=== PATIENT | male | born 2000 | race Caucasian/White ===

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

== ENCOUNTER 2022-09-25 11:07 | Emergency (ER) | payer OTHER, SELFPAY ==
--- NOTE | ~2022-09-25 | XR_ITS ---
EXAMINATION: XR lumbar spine min 4V DATE: 09/25/2022 11:45 INDICATION: Low back pain TECHNIQUE: Anteroposterior, lateral, and bilateral oblique views of the lumbar spine, and cone-down l ateral view of the lumbosacral junction were obtained. COMPARISON: None. FINDINGS: Bone alignment is normal. There is no fracture. The vertebral body heights and intervertebr al disc spaces are maintained. Spina bifida occulta is noted at S1. A moderate volume of colonic stoo l is present. IMPRESSION: 1. No acute osseous abnormality. Reviewed, dictated and finalized at location A.
[2022-09-25 11:15] VITALS: BP 134/80; PULSE 82; RESP 20; TEMP 36.8; O2SAT 100
--- NOTE | 2022-09-25 11:41 | ED.BACK ---
HPI - Back Pain/Injury General Chief Complaint: Back Pain/Injury Stated Complaint: lower back pain Time Seen by Provider: 09/25/22 11:40 Source: patient, RN notes reviewed and old records reviewed Mode of arrival: ambulatory Limitations: no limitations History of Present Illness HPI Narrative: 22 year old male who presents to [facility] care with complaints of right lower back pain which radiates down the buttocks into right leg posteriorly below knee for the past 3 days. Patient reports no known injury to his back, states pain is aggravated by bending and ambulation.Patient reports that his father adjusted his hips last time he is chiropractor. He states also that he has taken Ibuprofen and did take one of his mother's Xanax. No redness, bruising or any swelling noted to back denies any difficulty passing urine or stool. MD elicited complaint: back pain Onset (ago): day(s) (3) Pain scale (0-10): 3 Quality: sharp and aching Location: lumbar spine (sciatica right) Treatments prior to arrival: NSAIDS and other (took one of his mom's xanax) Work related injury: No Related Data Home Medications Medication Instructions Recorded Confirmed clonidine HCl 0.1 mg tablet 0.2 mg PO QHS 09/25/22 09/25/22 fluvoxamine 100 mg tablet 100 mg PO DAILY 09/25/22 09/25/22 lithium carbonate 300 mg tablet 300 mg PO BID 09/25/22 09/25/22 methylphenidate HCl 20 mg 20 mg PO TID PRN ADHD 09/25/22 09/25/22 tablet,extended release risperidone 1 mg tablet 1 mg PO DAILY 09/25/22 09/25/22 Allergies Allergy/AdvReac Type Severity Reaction Status Date / Time latex Allergy Rash Verified 09/25/22 11:36 Review of Systems Review of Systems: CONSTITUTIONAL: Denies fever, chills, or sweats. CARDIOVASCULAR: Denies chest pain, palpitations, or edema. RESPIRATORY: Denies cough or dyspnea. GASTROINTESTINAL: Denies abdominal pain, nausea, vomiting, or diarrhea. GENITOURINARY: Denies dysuria or hematuria. SKIN: Denies rash or itching. MUSCULOSKELETAL: Reports back pain right lower down buttock and radiating down right leg posteriorly to below knee. or myalgia. NEUROLOGIC: Denies headache, numbness, or weakness. All systems reviewed & are unremarkable except as noted in HPI and below Eyes: Comments: an PMFSH Past Medical History Medical History (Updated 09/26/22 @ 07:26 by Juliette Hurley NP) ADHD (attention deficit hyperactivity disorder) Anxiety and depression Difficulty controlling anger Fracture of right hand Insomnia OCD (obsessive compulsive disorder) Social History Social History (Updated 09/26/22 @ 07:16 by Juliette Hurley NP) Smoking packs per day: 0.3 Smoking cigarettes per day: 6.0 Smoking status: Current every day smoker Tobacco type: cigarettes and e-cigarettes/vaping Additional smoking assessment comments: use to vape now smokes cigarettes Alcohol intake: current Alcohol use details: social occasional Substance use: current Substance use type: marijuana Living arrangements: with family Gender identity (if verbalized by the patient): Male Comments At time of signature, agree with nursing past medical, surgical, social and family history. There is no relevant family history pertinent to the presenting complaint Exam Narrative: GENERAL: Well-appearing, well-nourished, and in no acute distress. HEAD: Normocephalic, atraumatic. EYES: PERRLA and EOMI. NECK: Supple. No lymphadenopathy. CHEST: Clear to auscultation. No respiratory distress. SAO2 100% on room air HEART: Regular rate and rhythm. Distal pulses palpable and equal, cap refill <3 seconds ABDOMEN: Soft, nontender, nondistended, normal active bowel sounds, no palpable or pulsatile masses. No CVA tenderness MUSCULOSKELETAL: Normal range of motion and strength in all extremities; 5/5 strength with hip flexion and extension, dorsiflexion and extension, knee flexion and extension, plantar flexion and extension. Normal sensation in ramiro
== END 2022-09-25 12:15 | disposition home or self-care (01) ==
PROVIDERS: Emergency Provider Registered Nurse
DX: M54.16 Radiculopathy, lumbar region (principal); M54.31 Sciatica, right side; F90.9 Attention-deficit hyperactivity disorder, unspecified type; F32.A Depression, unspecified; F17.210 Nicotine dependence, cigarettes, uncomplicated
CPT/HCPCS: 72110; 99213; G0463

== ENCOUNTER 2022-12-24 09:51 | Outpatient (CLI) | payer OTHER, SELFPAY ==
[2022-12-24 19:31] LABS: Hematocrit 44.3 % (42.0-52.0); Hemoglobin 13.7 g/dL (14.0-18.0); Mean Corpuscular HGB Conc 30.9 g/dl (32-36); Mean Corpuscular Hemoglobin 31.6 pg (26-34); Mean Corpuscular Volume 102.1 fl (80-100); Mean Platelet Volume 11.7 fl (7.4-10.4); Platelet Count Result 180 k/mm3 (150-375); Red Blood Count 4.34 M/mm3 (4.6-6.20); Red Cell Distribution Width 12.7 % (11.5-14.5); White Blood Count 5.1 K/mm3 (4.5-10.0)
[2022-12-24 19:39] LABS: Alanine Aminotransferase 20 U/L (6-50); Albumin Level 4.3 g/dL (3.5-5.1); Alkaline Phosphatase 86 U/L (38-126); Anion Gap 5 mmol/L (8-16); Aspartate Amino Transferase 50 U/L (17-59); Bilirubin,Total 0.3 mg/dL (0.2-1.3); Blood Urea Nitrogen 14 mg/dL (9-20); Calcium 9.1 mg/dL (8.4-10.2); Carbon Dioxide 33 mmol/L (22-30); Chloride 100 mmol/L (98-107); Cholesterol 121 mg/dL (0-200); Estimated Glomerular Filt Rate > 60; Glucose 84 mg/dL (65-110); HDL Direct 47 mg/dL; Potassium 4.4 mmol/L (3.4-5.0); Sodium 138 mmol/L (137-145); Triglycerides 157 mg/dL (<150)
[2022-12-24 19:49] LABS: LDL Cholesterol Direct 55 mg/dL
== END 2022-12-24 09:52 | disposition home or self-care (01) ==
LOC: ANHBWCLAB 09:53
PROVIDERS: PCP Family Medicine; Visit Provider Family Medicine
DX: G47.00 Insomnia, unspecified (principal); F90.9 Attention-deficit hyperactivity disorder, unspecified type; F42.9 Obsessive-compulsive disorder, unspecified; F41.9 Anxiety disorder, unspecified; F32.A Depression, unspecified; R45.4 Irritability and anger
CPT/HCPCS: 36415; 80053; 80061; 85027

== ENCOUNTER 2023-01-10 09:08 | Outpatient (CLI) | payer OTHER, SELFPAY ==
[2023-01-10 19:01] LABS: Iron 54 ug/dL (49-181)
[2023-01-10 19:17] LABS: Percent Iron Saturation 16 % (20-50)
== END 2023-01-10 09:09 | disposition home or self-care (01) ==
LOC: ANHBWCLAB 09:10
PROVIDERS: PCP Family Medicine; Visit Provider Family Medicine
DX: D64.9 Anemia, unspecified (principal)
CPT/HCPCS: 36415; 82607; 82728; 83540; 83550

== ENCOUNTER 2023-10-16 08:03 | Emergency (ER) | payer OTHER, SELFPAY ==
[2023-10-16 08:14] VITALS: BP 118/76; PULSE 77; RESP 18; TEMP 36.6; O2SAT 99
--- NOTE | 2023-10-18 10:14 | ED.URI ---
HPI - URI/Sore Throat General Chief Complaint: Upper Respiratory Infection Stated Complaint: Fever Time Seen by Provider: 10/16/23 08:30 Source: patient Mode of arrival: ambulatory Limitations: no limitations History of Present Illness HPI Narrative: 23-year-old male presents with complaint of fever, nasal congestion, cough, fatigue, headache for 2 days. Patient states recent camping trip, multiple people that were not with him positive for COVID. No chest pain or shortness of breath. Needs work note. All systems reviewed and negative except as noted above. Related Data Home Medications Medication Instructions Recorded Confirmed No Home Medications 10/16/23 10/16/23 Allergies Allergy/AdvReac Type Severity Reaction Status Date / Time latex Allergy Rash Verified 10/16/23 08:24 Review of Systems Review of Systems: CONSTITUTIONAL: Reports fever, chills, or sweats. EYES: Denies visual changes, redness, or discharge. ENT: reports rhinorrhea, congestion, sore throat. Denies otalgia. CARDIOVASCULAR: Denies chest pain, palpitations, or edema. RESPIRATORY: reports cough. Denies dyspnea. GASTROINTESTINAL: Denies abdominal pain, nausea, vomiting, or diarrhea. GENITOURINARY: Denies dysuria or hematuria. SKIN: Denies rash or itching. MUSCULOSKELETAL: Denies back pain, joint pain, or myalgia. NEUROLOGIC: Denies headache, numbness, or weakness. PSYCHIATRIC: Denies anxiety or depression. All other systems reviewed are negative, except as documented in HPI. [facility] Past Medical History Medical History (Updated 10/16/23 @ 08:39 by Lidia Leary NP) ADHD (attention deficit hyperactivity disorder) Anxiety and depression Difficulty controlling anger Fracture of right hand Insomnia OCD (obsessive compulsive disorder) Social History Social History (Updated 12/24/22 @ 09:12 by Esme Philippe MA) Smoking packs per day: 0.3 Smoking cigarettes per day: 6.0 Smoking status: Current every day smoker Tobacco type: cigarettes and e-cigarettes/vaping Additional smoking assessment comments: use to vape now smokes cigarettes Alcohol intake: current Alcohol use details: social occasional Substance use: current Substance use type: marijuana Lack of Transportation: YES Lack of Food: Never True Current Housing: I Have Housing Concerned About Future Housing: No Difficulty Paying Gas/Electric Bills: No Difficulty Paying for Meds: No Currently Unemployed: No Education: High School Diploma/GED Difficulty w/ Childcare or Family Care: No Living arrangements: with family Gender identity (if verbalized by the patient): Male Comments At time of signature, agree with nursing past medical, surgical, social and family history. There is no relevant family history pertinent to the presenting complaint. Exam Narrative: GENERAL: This is a well-nourished, well-developed patient, ill-appearing but in no acute distress. HEAD: normocephalic, atraumatic. EYES: PERRL. Sclera clear/white. Vision is grossly intact. EARS: External ears normal, auditory canals clear and without drainage, TMs normal without perforation. Hearing grossly intact. NOSE: External nose normal with Clear nasal drainage, mild congestion. THROAT: Mucous membranes moist, Erythema postnasal drainage NECK: Neck supple, non-tender without lymphadenopathy, masses or thyromegaly. CARDIOVASCULAR: Regular rate and rhythm without murmurs, gallops, or rubs. RESPIRATORY: Clear to auscultation. Breath sounds equal bilaterally. No wheezes, rales, or rhonchi. SKIN: warm, Dry, intact with no suspicious lesions or rash, good texture and turgor. NEURO: awake, alert, and oriented to person, place and time. There were no obvious focal neurologic abnormalities. EXTREMITIES: No joint tenderness, effusion, or edema noted. Course Course Level of Care: Express Care Visit Vital Signs Vital signs: Vital Signs Temperature 36.
== END 2023-10-16 08:40 | disposition home or self-care (01) ==
PROVIDERS: Emergency Provider Nurse Practitioner Family
DX: U07.1 COVID-19 (principal); F17.210 Nicotine dependence, cigarettes, uncomplicated; F12.90 Cannabis use, unspecified, uncomplicated
CPT/HCPCS: 87426; 99213; G0463

== ENCOUNTER 2024-01-23 13:03 | Outpatient (CLI) | payer OTHER, SELFPAY ==
[2024-01-23 18:39] LABS: Basophils Percent Auto 0.2 % (0.2-1.2); Eosinophils Percent Auto 0.7 % (0-4.4); Hemoglobin 15.9 g/dL (14.0-18.0); Immature Granulocyte Absolute 0.02 K/mm3 (0.00-0.031); Immature Granulocyte Percent A 0.4 % (0-0.5); Lymphocytes Absolute Auto 1.75 K/mm3 (0.9-3.2); Lymphocytes Percent Auto 32.3 % (18.3-44.2); Mean Corpuscular HGB Conc 33.8 g/dl (32-36); Mean Corpuscular Hemoglobin 31.9 pg (26-34); Mean Corpuscular Volume 94.2 fl (80-100); Mean Platelet Volume 12.1 fl (7.4-10.4); Monocytes Absolute Auto 0.3 K/mm3 (0.1-0.6); Monocytes Percent Auto 4.8 % (2.6-8.5); Neutrophils Absolute Auto 3.3 K/mm3 (1.3-6.7); Neutrophils Percent Auto 61.6 % (45.5-73.1); Platelet Count Result 185 k/mm3 (150-375); Red Blood Count 4.99 M/mm3 (4.6-6.20); Red Cell Distribution Width 12.6 % (11.5-14.5); White Blood Count 5.4 K/mm3 (4.5-10.0)
[2024-01-23 19:05] LABS: Alanine Aminotransferase 24 U/L (6-50); Albumin Level 4.5 g/dL (3.5-5.1); Alkaline Phosphatase 94 U/L (38-126); Anion Gap 8 mmol/L (4-12); Aspartate Amino Transferase 80 U/L (17-59); Bilirubin,Total 0.5 mg/dL (0.2-1.3); Blood Urea Nitrogen 17 mg/dL (9-20); Calcium 9.5 mg/dL (8.4-10.2); Carbon Dioxide 31 mmol/L (22-30); Chloride 103 mmol/L (98-107); Estimated Glomerular Filt Rate > 60; Glucose 80 mg/dL (65-110); Potassium 3.9 mmol/L (3.4-5.0); Sodium 142 mmol/L (137-145)
[2024-01-23 19:30] LABS: Thyroid Stimulating Hormone < 0.015 uIU/mL (0.465-4.680)
[2024-01-24 10:03] LABS: Prolactin 1.9 ng/mL (2.0-18.0)
[2024-01-24 18:59] LABS: Red Blood Cell Folate 428 ng/mL RBC (>280)
[2024-01-26 15:25] LABS: Vitamin D 1,25 (OH)2 Total 51 pg/mL (18-72); Vitamin D2 1,25 (OH)2 <8 pg/mL; Vitamin D3 1,25 (OH)2 51 pg/mL
== END 2024-01-23 13:04 | disposition home or self-care (01) ==
LOC: ANHBWCLAB 13:05
PROVIDERS: PCP Family Medicine; Visit Provider Psychiatry & Neurology Neurology
DX: G40.909 Epilepsy, unspecified, not intractable, without status epilepticus (principal); E55.9 Vitamin D deficiency, unspecified
CPT/HCPCS: 36415; 80053; 82607; 82652; 82747; 84146; 84443; 85025

== ENCOUNTER 2024-02-07 06:37 | Outpatient (CLI) | payer OTHER, SELFPAY ==
--- NOTE | 2024-02-09 15:13 | P.NEURO_ITS ---
Neurology EEG Report General Information Date of Study: 02/07/24 TEST eeg DIAGNOSIS epilepsy CONDITION OF RECORDING awake and drowsy EEG NUMBER [id number] CLINICAL HISTORY patient reports he has had 3 or 4 episodes of blacking out and then becoming confused 1 of the episode was witnessed to have some shaking as well during the blackout. No previous history of seizures and no family history of seizures. EEG DESCRIPTION Basic resting occipital frequency consists of low to medium voltage 9 to 11 hertz per 2nd alpha admixed with low-voltage 15 to 18 hertz per 2nd beta. Photic stimulation produced normal drive. Hyperventilation produced normal symmetrical buildup. Low-voltage beta activity seen diffusely during drowsiness admitted with waxing and waning posterior alpha rhythm which is also symmetrical block by opening of the eyes. Low-voltage beta activity seen admixed with low- voltage alpha and theta activity during drowsiness bilateral symmetrical sleep activity is noted during sleep. Non paroxysmal. Nonfocal. Nonlateralizing. IMPRESSION Normal record.
== END 2024-02-07 06:38 | disposition home or self-care (01) ==
PROVIDERS: PCP Family Medicine; Visit Provider Psychiatry & Neurology Neurology
DX: G40.909 Epilepsy, unspecified, not intractable, without status epilepticus (principal); Z87.828 Personal history of other (healed) physical injury and trauma
CPT/HCPCS: 95816

== ENCOUNTER 2024-02-07 09:33 | Outpatient (CLI) | payer OTHER, SELFPAY ==
--- NOTE | ~2024-02-07 | MR_ITS ---
EXAMINATION: MR brain/brain stem wo/w con DATE: 02/07/2024 10:27 INDICATION: Multiple sclerosis. TECHNIQUE: Magnetic resonance imaging (MRI) of the brain and brainstem was performed without and with 13 mL MultiHance intravenous contrast. COMPARISON: None. FINDINGS: There is no intracranial hemorrhage, acute infarction, or abnormal intracranial mass lesion . The ventricles are normal in size. The paranasal sinuses are clear. The orbits are normal. The mast oid air cells are normal. IMPRESSION: 1. Normal brain. Reviewed, dictated and finalized at location A. FEEDER IMPRESSION: 1. Normal brain.
== END 2024-02-07 09:34 | disposition home or self-care (01) ==
LOC: MICIMG 09:34
PROVIDERS: PCP Psychiatry & Neurology Neurology; Visit Provider Psychiatry & Neurology Neurology
DX: G35 Multiple sclerosis (principal); G40.909 Epilepsy, unspecified, not intractable, without status epilepticus
CPT/HCPCS: 70553; A9577

== ENCOUNTER 2024-02-28 11:26 | Outpatient (CLI) | payer OTHER, SELFPAY ==
[2024-02-28 13:14] LABS: HIV 1/2 Ab P24 Ag Result Negative (Negative)
[2024-02-28 13:15] LABS: Hepatitis B Surface Antigen Negative (Negative)
[2024-02-28 13:21] LABS: HAV RESULT Negative (Negative); Hepatitis B Core IgM Result Negative (Negative)
[2024-02-28 13:31] LABS: Rapid Plasma Reagin Non-Reactive (NonReactive)
[2024-02-28 13:32] LABS: Hepatitis C Virus Antibody Negative (Negative)
[2024-02-28 13:34] LABS: Trichomonas Vag PCR NOT DETECTED (NOT DETECTE)
[2024-02-28 13:56] LABS: Chlamydia trachomatis NOT DETECTED (NOT DETECTE); Neisseria gonorrhoeae PCR NOT DETECTED (NOT DETECTE)
== END 2024-02-28 11:27 | disposition home or self-care (01) ==
LOC: ANHLAB 11:27
PROVIDERS: PCP Family Medicine; Visit Provider Nurse Practitioner Family
DX: A60.00 Herpesviral infection of urogenital system, unspecified (principal); Z11.4 Encounter for screening for human immunodeficiency virus [HIV]; Z72.51 High risk heterosexual behavior; Z11.59 Encounter for screening for other viral diseases
CPT/HCPCS: 36415; 80074; 86592; 86695; 86696; 86703; 87491; 87591; 87661; G0432

== ENCOUNTER 2025-02-07 10:44 | Emergency (ER) | payer OTHER, SELFPAY ==
--- NOTE | ~2025-02-07 | CT_ITS ---
EXAMINATION: CT cervical spine wo con DATE: 02/07/2025 12:10 INDICATION: Neck pain. Neck injury. TECHNIQUE: Computed tomography (CT) of the cervical spine was performed without intravenous contrast. Automated exposure control and iterative reconstruction technique were employed. The dose-length product was 342.69 mGy-cm. COMPARISON: None FINDINGS: There is kyphosis of cervical spine. There is 5 degrees dextrocurvature of cervical spine. Vertebral body heights and intervertebral disc heights are normal. There is mild facet joint osteoarthritis bilaterally at C7-T1. No neural foraminal stenosis or central canal stenosis. IMPRESSION: 1. No fracture. Reviewed, dictated and finalized at location E. [employer] IMPRESSION: 1. No fracture.
--- NOTE | ~2025-02-07 | CT_ITS ---
EXAMINATION: CT brain wo con DATE: 02/07/2025 12:09 INDICATION: Head injury. Loss of consciousness. TECHNIQUE: Computed tomography (CT) of the head was performed without intravenous contrast. The mA was adjusted according to patient size. Iterative reconstruction technique was employed. The dose-length product was 681.00 mGy-cm. COMPARISON: Brain MRI 02/07/2024 FINDINGS: There is no intracranial hemorrhage, acute infarction, or abnormal intracranial mass lesion. The ventricles are normal in size. The orbits are normal. There is mild mucosal thickening in the right frontal sinus. The mastoid air cells are normal. IMPRESSION: 1. Normal brain. Reviewed, dictated and finalized at location E. [employer] IMPRESSION: 1. Normal brain.
--- OUTSIDE RECORDS SUMMARY | 2025-02-07 10:46 | XMS_ITS | Clinical Summary ---
Author Organization [facility] Address [address] [place] [address] Care Team Providers Care Hide Shaker Name Role Phone Brenton Tellez MD Primary Care Provider [phone] Source Comments [facility],non-owned Affiliates and Associated Physician Practices is amultiple site organization consisting of ambulatory clinics and hospital sitesin [place], [place], [place] and [place]. This disclosure is being madepursuant to the Care Everywhere program and may not contain all information available regarding this patient. Last updated 17.[facility] Allergies Active Allergy Reactions Criticality Noted Date Comments Latex Rash Medium 11/18/2018 Medications * Be aware that medications may not be up to date on this document. Alwaysverify current medications with the patient. cloNIDine (CATAPRES) 0.1 MG tablet TK 3 TS PO QHS 10 10/24/2018 Active amoxicillin (AMOXIL) 500 MG tablet TK 1 T PO BID 2 10/22/2018 Activ e fluvoxaMINE (LUVOX) 100 MG tablet 11 11/14/2018 Active methylphenidate (RITALIN) 10 MG tablet 20 mg 0 11/13/2018 Active risperiDONE (RISPERDAL) 1 MG tablet TK 1 T PO D 2 09/30/2018 Active methylphenidate CR (CONCERTA) 54 MG tablet TK 1 T PO QAM 0 11/13/2018 Ac tive ibuprofen (MOTRIN) 600 MG tablet TK 1 T PO Q 6 H WF PRF CRAMPING 0 11/13/2018 Active LITHIUM PO Take 300 mg by mouth 2 times daily Active Active Problems Problem Noted Date Diagnosed Date Nondisplaced fracture of nec k of fifth metacarpal bone, right hand, initial encounter for closed fracture 11/18/2018 Social History Tobacco Use Types Packs/Day Years Used Date Smoking Tobacco: Every Day Smokeless Tobacco: Never Comments:pt reports vaping e veryday Sex and Gender Information Value Date Recorded Sex Assigned at Not on file Legal Sex Male 3:13 PM CDT Gender Identity Not on file Sexual Orientation Not on file Last Filed Vital Signs Vital Sign Reading Time Taken Comments Blood Pressure - - Pulse - - Temperature - - Respiratory Rate - - Oxygen Saturation - - Inhaled Oxygen Concentration - - Weight 60.6 kg (133 lb 9.6 oz) 11/18/2018 1:05 P M CDT Height 168.2 cm (5' 6.22) 11/18/2018 1:05 PM CD T Body Mass Index 21.42 11/18/2018 1:05 PM CDT Plan of Treatment Health Maintenance Due Date Last Done Comments HIV SCREENING 2016 HPV VACCINE (1 - Male 3-dose series) 2016 MENINGOCOCCAL (Group B) VACC INE SHARED DECISION-MAKING (1 of 2 - Standard) 2017 HEPATITIS C SCREENING 03/08/2019 DTAP/TDAP/TD VACCINES (1 - Tdap) 2020 HEPATITIS B VACCINE (1 of 3 - 19+ 3-dose series) 2020 PNEUMOCOCCAL VACCINE (1 of 2 - PCV) 2020 DEPRESSION SCREENING 03/25/2024 COVID-19 VACCINE (1 - 2024-2 6 season) 2024 INFLUENZA VACCINE (#1) 2024 ZOSTER VACCINE (1 of 2) 2051 HIB VACCINE Aged Out No longer eligi ble based on patient's age to complete this topic MENINGOCOCCAL GROUPS A/C/Y/W VACCINE Aged Out No longer eligible b ased on patient's age to complete this topic Insurance [employer] Care Teams Hide Shaker Relationship Specialty Start Date End Date Brenton Tellez MD [address] [place] [address] PCP - General Pediatrics 11/13/18
[2025-02-07 10:51] VITALS: BP 107/73; PULSE 67; RESP 20; TEMP 36.6; O2SAT 96
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
[2025-02-07] MEDS: TETANUS,DIPHTHERIA,AC PERTUSSIS ADULT (0.5 ML) BOOSTRIX IM (12:19)
== END 2025-02-07 13:19 | disposition home or self-care (01) ==
PROVIDERS: Emergency Provider Student in an Organized Health Care Education/Training Program; PCP Family Medicine
DX: M62.838 Other muscle spasm (principal); T24.111A Burn of first degree of right thigh, initial encounter; T24.112A Burn of first degree of left thigh, initial encounter; V29.99XA Rider (driver) (passenger) of other motorcycle injured in unspecified traffic accident, initial encounter; Z23 Encounter for immunization
CPT/HCPCS: 70450; 72125; 90471; 90715; 99284; L0140

== ENCOUNTER 2025-03-16 13:10 | Emergency (ER) | payer OTHER, SELFPAY ==
[2025-03-16 13:20] VITALS: BP 110/64; PULSE 66; RESP 16; TEMP 36.4; O2SAT 99
--- NOTE | 2025-03-16 14:03 | ED_ITS ---
HPI - Male Genitourinary General Chief complaint: Urogenital-Male Stated complaint: STD TESTING Time Seen by Provider: 03/16/25 13:56 Source: patient and RN notes reviewed Mode of arrival: ambulatory Limitations: no limitations History of Present Illness HPI Narrative: 25-year-old male patient presents today requesting testing for STI. Patient was notified that his girlfriend has chlamydia. Patient denies any symptoms at this time. Related Data Home Medications ?Medication ?Instructions ?Recorded ?Confirmed ?Last Taken ?Type clonidine HCl 0.1 mg tablet mg PO 12/29/24 Unknown Hi story methylphenidate HCl 36 mg mg PO 12/29/24 Unknown Hist ory tablet,extended release 24 hr risperidone 1 mg tablet mg PO 12/29/24 Unknown Hist ory Allergies Allergy/AdvReac Type Severity Reaction Status Date / Time latex Allergy Rash Verified 03/16/25 13:33 [facility] Past Medical History Medical History Abuse, drug or alcohol Insomnia ADHD (attention deficit hyperactivity disorder) Difficulty controlling anger OCD (obsessive compulsive disorder) Anxiety and depression Fracture of right hand Social History Social History Smoking packs per day: 0.3 Smoking cigarettes per day: 6.0 Smoking status: Current every day smoker Tobacco type: cigarettes and e-cigarettes/vaping Additional smoking assessment comments: use to vape now smokes cigarettes Alcohol intake: current Alcohol use details: social occasional Substance use: current Substance use type: marijuana Lack of Transportation: No Lack of Food: Never True Current Housing: I Have Housing Concerned About Future Housing: No Difficulty Paying Gas/Electric Bills: No Difficulty Paying for Meds: No Currently Unemployed: No Education: High School Diploma/GED Difficulty w/ Childcare or Family Care: No Living arrangements: with family Gender identity (if verbalized by the patient): Male Comments At time of signature, I have reviewed and agree with nursing past medical, surgical, social and family history unless otherwise noted. Please see nursing chart for further information. There is no relevant family history pertinent to the presenting complaint Exam Narrative: GENERAL: Well-appearing, well-nourished, and in no acute distress. HEAD: Normocephalic, atraumatic. EYES: EOMI. No redness or drainage. Conjunctivae normal. ENT: Mucous membranes pink and moist. NECK: Normal AROM. CHEST: No respiratory distress. exam deferred EXTREMITIES: Normal range of motion. No edema. SKIN: Warm, dry, no rash. Capillary refill normal. NEURO: No focal deficits. Alert and oriented x3. Gait steady. PSYCH: Normal affect. No signs of depression or anxiety. Course Course Level of Care: Express Care Visit Vital Signs Vital signs: Vital Signs Temperature 97.6 F 03/16/25 13:20 Pulse Rate 66 03/16/25 13:20 Respiratory Rate 16 03/16/25 13:20 Blood Pressure 110/64 03/16/25 13:20 Pulse Oximetry 99 03/16/25 13:20 Temperature 97.6 F 03/16/25 13:20 Pulse Rate 66 03/16/25 13:20 Respiratory Rate 16 03/16/25 13:20 Blood Pressure 110/64 03/16/25 13:20 Pulse Oximetry 99 03/16/25 13:20 Reviewed MDM MDM Narrative Medical decision making narrative: 25-year-old male patient presents today requesting testing for STI. Patient was notified that his girlfriend has chlamydia. Patient denies any symptoms at this time. Exam normal. exam deferred. Urine testing for gonorrhea, chlamydia, and Trichomonas collected. IM Rocephin ordered. Prescriptions for doxycycline and metronidazole sent to pharmacy. Patient agrees with plan. Vital signs stable. Anticipatory guidance given. Differential Diagnosis Differential Diagnosis: Chlamydia, gonorrhea, Trichomonas Critical Care Time Critical Care Time Critical Care Time: No Discharge Plan Discharge Clinical Impression: Encounter for screening examination for sexually transmitted disease Patient Disposition: Home Condition: Stable Instructions: Antibiotic Form, Chlamydia (ED) Additional Instructions: Your urine sample has been sent off to test for gonorrhea, chlamydia, and trichomonas infections. These tests can take up to 24 hours to come back. You will be notified by telephone if any of your tests come back positive. You have been treated with Rocephin in urgent care today to cover you for gonorrhea. Prescriptions for Flagyl and doxycycline have been sent to your pharmacy to cover you for trichomonas and chlamydia. If any of your tests come back positive you should need no further treatment. If any of your tests come back positive, you will need to notify any partners that you have, and they will need to be tested and treated. If your tests come back negative and you are still experiencing symptoms, please follow-up with your PCP, a sexual health clinic, or urologist for further evaluation and treatment. If your symptoms worsen to include fever, abdominal pain, or back pain, please go to the hospital immediately. Patient Language: Turkmen Prescriptions: New doxycycline hyclate 100 mg tablet 100 mg PO BID 7 Days Qty: 14 0RF metronidazole 500 mg tablet 2,000 mg PO ONCE Qty: 4 0RF No Action clonidine HCl 0.1 mg tablet PO risperidone 1 mg tablet PO methylphenidate HCl 36 mg tablet extended release 24hr PO Follow-up/Referrals: Adrián Farah MD [Primary Care Provider, Family Practice] Time of Disposition: 14:09
[2025-03-16] MEDS: cefTRIAXone 500 MG, LIDOCAINE 1% LOCAL INJ 1 ML IM (14:21)
[2025-03-16 19:49] LABS: Trichomonas Vag PCR NOT DETECTED (NOT DETECTE)
== END 2025-03-16 14:25 | disposition home or self-care (01) ==
PROVIDERS: Emergency Provider Nurse Practitioner; PCP Family Medicine
DX: Z20.2 Contact with and (suspected) exposure to infections with a predominantly sexual mode of transmission (principal); F17.210 Nicotine dependence, cigarettes, uncomplicated; F12.90 Cannabis use, unspecified, uncomplicated; F90.9 Attention-deficit hyperactivity disorder, unspecified type
CPT/HCPCS: 87491; 87591; 87661; 96372; 99213; G0463; J0696; J2003